=== PATIENT | female | born 1990 | race Two or more races ===

== ENCOUNTER 2019-06-04 17:27 | Emergency (ER) | payer OTHER ==
[~2019-06-04] VITALS: Ht 167.6 cm; Wt 88.5 kg
--- NOTE | 2019-06-04 18:25 | NUR ---
NAUSEA AND VOMITING X 2 DAYS. PATIENT A/OX4, BREATHING EVEN AND UNLABORED, NO SOB NOTED, NEEDS ATTENDED, KEPT COMFORTABLE.
--- NOTE | 2019-06-04 18:31 | NUR ---
URINE SENT TO LAB.
[2019-06-04 18:36] LABS: APPEARANCE,URINE Slightly Cloudy (CLEAR); BILIRUBIN,URINE MODERATE (NEGATIVE); BLOOD, URINE Trace-intact Ery/uL (NEGATIVE); COLOR,URINE Yellow (YELLOW); KETONES,URINE >=160 (NEGATIVE); LEUKOCYTE ESTERASE ,URINE Negative (NEGATIVE); NITRITE, URINE Negative (NEGATIVE); PH,URINE 5.5 (5.0-8.0); PROTEIN,URINE 30 mg/dl (NEGATIVE); UGLUCOSE 500 MG/DL mg/dL (NEGATIVE); UROBILINOGEN,URINE 0.2 EU/dL (0.2)
[2019-06-04 18:53] LABS: BACTERIA,URINE 1+ /HPF (None Seen); RBC,URINE 0-2 /HPF (0-2); SQUAMOUS EPITHELIAL CELL,UR Many /HPF (None Seen); WBC,URINE NONE SEEN /HPF (0-3)
[2019-06-04] MEDS ORDERED: ONDANSETRON HCL/PF 4 MG/2 ML VIAL IVP ONE (19:00)
[2019-06-04] MEDS ORDERED: LORAZEPAM INJ 2 MG/ML VIAL IV ONE (19:00)
[2019-06-04] MEDS ORDERED: IV NS 0.9% 1,000 ML BAG IV ONE ×2 (19:00→20:00)
[2019-06-04] MEDS ORDERED: ONDANSETRON HCL/PF 4 MG/2 ML VIAL ONE (19:08)
[2019-06-04 19:14] LABS: BASOPHILS # (AUTO) 0.1 /CMM (0.0-0.2); BASOPHILS % (AUTO) 0.4 % (0.0-2.0); EOSINOPHILS % (AUTO) 0.1 % (0.0-6.0); HEMATOCRIT 49 % (33-45); HEMOGLOBIN 16.7 g/dL (11.5-14.8); LYMPHOCYTES # (AUTO) 3.4 /CMM (0.8-4.8); LYMPHOCYTES % (AUTO) 19.6 % (20.0-44.0); MEAN CORPUSCULAR HGB CONC 34 g/dl (31.0-36.0); MEAN CORPUSCULAR VOLUME 83 fL (82-100); MONOCYTES # (AUTO) 1.3 /CMM (0.1-1.30); MONOCYTES % (AUTO) 7.6 % (2.0-12.0); NEUTROPHILS # (AUTO) 12.5 /CMM (1.8-8.9); NEUTROPHILS % (AUTO) 72.3 % (43.0-81.0); PLATELET COUNT (AUTO) 231 /CMM (150-450); RED BLOOD CELL COUNT(AUTO) 5.91 MIL/uL (4.0-5.2); WHITE BLOOD COUNT (AUTO) 17.3 K/uL (4.3-11.0)
[2019-06-04] MEDS ORDERED: LORAZEPAM INJ 2 MG/ML VIAL ONE (19:17)
[2019-06-04 19:31] LABS: ALBUMIN 4.2 g/dL (3.4-5.0); BILIRUBIN,DIRECT 0.1 mg/dL (0.0-0.2); BILIRUBIN,TOTAL 0.6 mg/dL (0.2-1.0); CALCIUM, SERUM 9.8 mg/dL (8.5-10.1); CREATININE 0.9 mg/dL (0.6-1.3); POTASSIUM 3.7 mmol/L (3.5-5.1); TOTAL PROTEIN, SERUM 8.7 g/dL (6.4-8.2)
[2019-06-04 22:08] LABS: CALCIUM, SERUM 8.3 mg/dL (8.5-10.1); CREATININE 0.8 mg/dL (0.6-1.3); POTASSIUM 3.7 mmol/L (3.5-5.1)
--- NOTE | 2019-06-04 23:00 | NUR ---
IV removed. Catheter intact and site benign. Pressure and 4x4 applied to site. No bleeding noted.
[2019-06-04 23:01] VITALS: BP 129/87
--- NOTE | 2019-06-04 23:01 | NUR ---
Patient discharged to home in stable condition. Written and verbal after care instructions given. Patient verbalizes understanding of instruction.
== END 2019-06-04 23:11 | disposition home or self-care (01) ==
LOC: ER 17:28
DX: R11.2 Nausea with vomiting, unspecified (principal); E11.65 Type 2 diabetes mellitus with hyperglycemia; E86.0 Dehydration; R82.4 Acetonuria; D72.829 Elevated white blood cell count, unspecified; K04.7 Periapical abscess without sinus; E87.8 Other disorders of electrolyte and fluid balance, not elsewhere classified; E66.9 Obesity, unspecified; Z68.31 Body mass index [BMI] 31.0-31.9, adult
CPT/HCPCS: 36415; 80048 ×2; 80076; 81001; 82010; 82962 ×2; 83690; 84703; 85025; 96361; 96374; 96375; 99284; J2060; J2405; J7030 ×2; 81000-TC

== ENCOUNTER 2020-09-12 18:21 | Inpatient (IN) | payer MEDICAID, OTHER ==
[~2020-09-12] VITALS: Ht 157.5 cm; Wt 93.0 kg
--- NOTE | 2020-09-12 18:35 | NUR ---
THE PATIENT IS ALERT AND ORIENTED X4. C/O NAUSEA AND VOMITING SINCE 0500. DENIES PAIN. RESPIRATION REGULAR AND UNLABORED. ATTACHED TO THE MONITOR.
[2020-09-12 18:52] LABS: BASOPHILS % (AUTO) 0.2 % (0.0-2.0); HEMATOCRIT 48 % (33-45); HEMOGLOBIN 15.9 g/dL (11.5-14.8); LYMPHOCYTES # (AUTO) 1.2 /CMM (0.8-4.8); LYMPHOCYTES % (AUTO) 6.4 % (20.0-44.0); MEAN CORPUSCULAR HGB CONC 33 g/dl (31.0-36.0); MEAN CORPUSCULAR VOLUME 86 fL (82-100); MONOCYTES # (AUTO) 0.6 /CMM (0.1-1.30); NEUTROPHILS # (AUTO) 16.5 /CMM (1.8-8.9); NEUTROPHILS % (AUTO) 90.4 % (43.0-81.0); PLATELET COUNT (AUTO) 235 /CMM (150-450); RED BLOOD CELL COUNT(AUTO) 5.61 MIL/uL (4.0-5.2); WHITE BLOOD COUNT (AUTO) 18.3 K/uL (4.3-11.0)
[2020-09-12] MEDS ORDERED: ONDANSETRON HCL/PF 4 MG/2 ML VIAL ONE (18:53)
[2020-09-12] MEDS ORDERED: IV NS 0.9% 1,000 ML BAG IV ONE ×2 (19:00→20:00)
[2020-09-12] MEDS ORDERED: ONDANSETRON HCL/PF 4 MG/2 ML VIAL IVP ONE (19:00)
[2020-09-12 19:15] LABS: ALANINE AMINOTRANSFERASE 37 U/L (12-78); ALBUMIN 4.1 g/dL (3.4-5.0); ALKALINE PHOSPHATASE 93 U/L (46-116); ASPARTATE AMINOTRANSFERASE 13 U/L (15-37); BILIRUBIN,DIRECT 0.1 mg/dL (0.0-0.2); BILIRUBIN,TOTAL 0.6 mg/dL (0.2-1.0); CARBON DIOXIDE 16 mmol/L (21-32); CHLORIDE 101 mmol/L (98-107); LIPASE 29 U/L (73-393); POTASSIUM 3.6 mmol/L (3.5-5.1); SODIUM SERUM 139 mmol/L (136-145); TOTAL PROTEIN, SERUM 8.5 g/dL (6.4-8.2); UREA NITROGEN, BLOOD 10 mg/dL (7-18)
[2020-09-12 19:16] LABS: GLUCOSE 379 mg/dL (74-106)
--- NOTE | 2020-09-12 19:20 | NUR ---
PATIENT STILL FEELS NAUSEOUS, MD IS NOTIFIED. VERBAL ORDER FOR IV 5MG OF REGLAN. WILL MEDICATE ORDERED.
[2020-09-12] MEDS ORDERED: METOCLOPRAMIDE HCL 10 MG/2 ML VIAL ONE (19:26)
[2020-09-12] MEDS ORDERED: METOCLOPRAMIDE HCL 10 MG/2 ML VIAL IV ONE (19:30)
--- NOTE | 2020-09-12 19:30 | NUR ---
PATIENT MEDICATED ORDERED.
--- NOTE | 2020-09-12 19:31 | NUR ---
PATIENT AMBULATED TO THE RESTROOM WITH A STEADY GAIT.
--- NOTE | 2020-09-12 19:33 | NUR ---
URINE COLLECTED AND SENT TO LAB.
[2020-09-12 19:49] LABS: BILIRUBIN,URINE Negative (NEGATIVE); COLOR,URINE YELLOW (YELLOW); LEUKOCYTE ESTERASE ,URINE Negative (NEGATIVE); NITRITE, URINE Negative (NEGATIVE); PH,URINE 5.5 (5.0-8.0); PROTEIN,URINE Trace mg/dl (NEGATIVE); UGLUCOSE 500 MG/DL mg/dL (NEGATIVE); UROBILINOGEN,URINE 0.2 EU/dL (0.2)
[2020-09-12 19:54] LABS: BACTERIA,URINE Rare /HPF (None Seen); RBC,URINE 0-2 /HPF (0-2); WBC,URINE 0-2 /HPF (0-3)
[2020-09-12] MEDS ORDERED: INSULIN REGULAR, HUMAN 100 UNIT/ML 10 ML VIAL IV ONE (20:00)
[2020-09-12] MEDS ORDERED: INSULIN REGULAR, HUMAN 100 UNIT/ML 10 ML VIAL ONE (20:09)
--- NOTE | 2020-09-12 20:31 | NUR ---
po challenged per md's order. patient failed challenge. md notified.
--- NOTE | 2020-09-12 21:08 | NUR ---
CALLED [facility], PAGED ALEXANDER SORIANO FOR ADMISSION
--- NOTE | 2020-09-12 21:15 | NUR ---
DR VICENTE SPEAKING WITH ALEXANDER SORIANO DNP
[2020-09-12 21:29] LABS: CALCIUM, SERUM 8.9 mg/dL (8.5-10.1); POTASSIUM 3.9 mmol/L (3.5-5.1)
[2020-09-12] MEDS ORDERED: LORAZEPAM INJ 2 MG/ML VIAL ONE (21:38)
[2020-09-12] MEDS ORDERED: LORAZEPAM INJ 2 MG/ML VIAL IV ONE (22:00)
--- NOTE | 2020-09-12 22:27 | NUR ---
BED ASSIGNMENT: 321-1 TELE
[2020-09-12] MEDS: CEFTRIAXONE 2 G in IV D5W 100 ML IV SCH (22:30)
[2020-09-12] MEDS ORDERED: ZOLPIDEM TARTRATE 5 MG TABLET PO PRN (22:30)
[2020-09-12] MEDS ORDERED: IV NS 0.9% 1,000 ML IV ONE (22:30)
[2020-09-12] MEDS ORDERED: MORPHINE SULFATE INJ 2 MG/ML DISP.SYRIN IV PRN (22:30)
[2020-09-12] MEDS ORDERED: METOCLOPRAMIDE HCL 10 MG/2 ML VIAL IV PRN (22:30)
[2020-09-12] MEDS ORDERED: ACETAMINOPHEN 325 MG TABLET PO PRN (22:30)
--- NOTE | 2020-09-12 22:34 | NUR ---
REPORT GIVEN TO JENNIFER HANNON FOR PAM.
[2020-09-12 22:50] VITALS: BP 101/59
[2020-09-12] MEDS: ENOXAPARIN SODIUM 40 MG/0.4 ML DISP.SYRIN SQ SCH (23:15)
--- NOTE | 2020-09-12 23:17 | NUR ---
CLINICAL EDUCATOR: ANTICOAGULANT H/H 15.9 Plt 235 No active bleeding. Lovenox injection given co-signed with Katie/PARVEZ.
[2020-09-12] MEDS ORDERED: CEFTRIAXONE 1 G VIAL ONE ×2 (23:38→23:39)
--- NOTE | 2020-09-12 23:44 | NUR ---
EXPORT FREIGHT CLERK: ANTIBIOTIC Rocephin IV, indication and possible side effect discussed to patient, verbalized understanding.
--- NOTE | 2020-09-13 00:19 | NUR ---
PEDICURIST: ADMISSION (23:15) 30 y/o female A/O x4. Oriented to room, unit, staff. Skin checked done, skin intact, no pressure injury noted. Patient is independent with mobility. No c/o abdominal pain, denies N/V at this time. Place call light within reach. Sinus rhythm in the Tele monitor HR 80, tolerating room air.
[2020-09-13] MEDS: IV NS 0.9% 1,000 ML IV PRN ×3 (02:19→18:48)
[2020-09-13] MEDS ORDERED: DEXTROSE 50%-WATER 50 ML DISP.SYRIN IV PRN (04:00)
--- NOTE | 2020-09-13 06:01 | NUR ---
INSTRUMENT REPAIRER: END OF SHIFT REPORT Sinus rhythm in the Tele monitor HR 74. Ongoing IVF, on Rocephin IV, afebrile. On Full Liquids, patient tolerated ice chips and will try to eat Full liquids diet. Denies N/V, no c/o abdominal pain. Independent with mobility. Will endorse to oncoming RN.
[2020-09-13] MEDS: BLOOD SUGAR DIAGNOSTIC 1 EACH STRIP IN SCH ×4 (06:06→22:10)
[2020-09-13] MEDS: INSULIN REGULAR, HUMAN 100 UNIT/ML 3 ML VIAL SQ PRN ×3 (06:07→17:53)
--- NOTE | 2020-09-13 06:10 | NUR ---
REAL ESTATE APPRAISER SUPERVISOR: ACCUCHECK FSBG 180mg/dl given 4 units insulin regular per ISS, co-signed with Sonali/RN.
[2020-09-13 06:56] LABS: BASOPHILS % (AUTO) 0.1 % (0.0-2.0); HEMATOCRIT 41 % (33-45); HEMOGLOBIN 13.4 g/dL (11.5-14.8); LYMPHOCYTES # (AUTO) 3.4 /CMM (0.8-4.8); LYMPHOCYTES % (AUTO) 22.2 % (20.0-44.0); MEAN CORPUSCULAR HGB CONC 33 g/dl (31.0-36.0); MEAN CORPUSCULAR VOLUME 87 fL (82-100); MONOCYTES # (AUTO) 1.7 /CMM (0.1-1.30); MONOCYTES % (AUTO) 11.1 % (2.0-12.0); NEUTROPHILS # (AUTO) 10.2 /CMM (1.8-8.9); NEUTROPHILS % (AUTO) 66.6 % (43.0-81.0); PLATELET COUNT (AUTO) 191 /CMM (150-450); RED BLOOD CELL COUNT(AUTO) 4.67 MIL/uL (4.0-5.2); WHITE BLOOD COUNT (AUTO) 15.3 K/uL (4.3-11.0)
--- NOTE | 2020-09-13 07:15 | NUR ---
FAMILY PROGRAM SPECIALIST OPENING NOTES RECEIVED PATIENT IN BED, ASLEEP BUT EASILY AROUSABLE. PATIENT ALERT AND ORIENTED X 4. PATIENT IS AMBULATORY. PATIENT WITH EVEN AND UNLABORED BREATHING ON ROOM AIR WITH NO SIGNS OF DISTRESS. NO COMPLAINT OF PAIN OR DISCOMFORT AT THIS TIME. PATIENT WITH IV PERIPHERAL LINE AT RIGHT HAND G22 WITH NS AT 150ML/HR, INFUSING WELL. PATIENT DOES NOT COMPLAIN OF ANY NAUSEA OR VOMITING. SAFETY MEASURES ENSURED AND COMFORT MEASURES PROVIDED. BED AT LOWEST BED POSITION AND LOCKED FOR SAFETY. CALL LIGHT AND TABLE WITHIN REACH AT ALL TIMES. PROVIDED WITH CALM AND QUIET ENVIRONMENT. WILL CONTINUE TO MONITOR PATIENT.
[2020-09-13 07:33] LABS: ALBUMIN 3.1 g/dL (3.4-5.0); BILIRUBIN,TOTAL 0.3 mg/dL (0.2-1.0); CALCIUM, SERUM 7.8 mg/dL (8.5-10.1); CREATININE 0.6 mg/dL (0.6-1.3); MAGNESIUM 1.4 mg/dL (1.8-2.4); PHOSPHORUS 3.2 mg/dL (2.5-4.9); POTASSIUM 3.5 mmol/L (3.5-5.1); TOTAL PROTEIN, SERUM 6.6 g/dL (6.4-8.2)
[2020-09-13 07:44] LABS: THYROID STIMULATING HORMONE 0.609 uIU/mL (0.358-3.74)
[2020-09-13 08:00] VITALS: BP 100/53
[2020-09-13] MEDS: PANTOPRAZOLE 40 MG VIAL IV SCH (08:40)
[2020-09-13] MEDS: Magnesium 1GM/D5W 100ML PREMIX 100 ML IV SCH ×4 (10:32→15:51)
[2020-09-13] MEDS ORDERED: Magnesium 1GM/D5W 100ML PREMIX 100 ML IV ONE (15:45)
--- NOTE | 2020-09-13 15:45 | NUR ---
CLINIC CLERK NOTES LAST BAG OF MAGNESIUM HOOKED AND RUNNING. NO ADVERSE REACTION NOTED AT THIS TIME.
[2020-09-13 16:00] VITALS: BP 120/71
[2020-09-13] MEDS ORDERED: SERT100T PO (16:32)
[2020-09-13] MEDS ORDERED: INSU100I26 SQ (16:32)
--- NOTE | 2020-09-13 19:00 | NUR ---
MS RN CLOSING NOTE PATIENT AWAKE ON BED ALERT AND ORIENTED X 4 . PATIENT DENIES ANY PAIN OR DISCOMFORT AT THIS TIME. PATIENT WITH PERIPHERAL LINE ON RIHGT HAND G22 WITH ONGOING NS AT 150ML/HR, INFUSING WELL. WITH NO SIGNS OF DISTRESS THROUGHOUT THE SHIFT. PATIENT IS AMBULATORY WITH STEADY GAIT. COMFORT MEASURES PROVIDED. PROVIDED WITH CALM AND QUIET ENVIRONMENT. BED MAINTAINED ON LOWEST POSITION AND LOCKED. CALL LIGHT AND BEDSIDE TABLE WITHIN REACH AT ALL TIMES. WILL ENDORSE TO HEALTH ADMINISTRATOR FOR CONTINUITY OF CARE.
[2020-09-13 20:03] VITALS: BP 103/50
--- NOTE | 2020-09-13 21:00 | NUR ---
AIRCRAFT POWERTRAIN REPAIRER: CONTINUITY OF CARE 19:08 Patient in bed, resting. Sinus rhythm in the Tele monitor. Patient reports feeling better today, no c/o abdominal pain, no episode of N/V.
[2020-09-13] MEDS: *INSULIN REGULAR(HUMULIN R)HUM 100 UNIT/ML VIAL SQ PRN (22:14)
--- NOTE | 2020-09-13 22:16 | NUR ---
OPERATIONAL INTELLIGENCE OFFICER: ACCUCHECK FSBG 181mg/dl given 3 units insulin regular per ISS, co-signed by Niki/RN.
[2020-09-13] MEDS: CEFTRIAXONE 2 G in IV D5W 100 ML IV SCH (22:18)
[2020-09-13] MEDS: ENOXAPARIN SODIUM 40 MG/0.4 ML DISP.SYRIN SQ SCH (22:26)
--- NOTE | 2020-09-13 22:27 | NUR ---
FRUIT RANCHER: ANTICOAGULANT H/H 13. Plt 191 No active bleeding. Lovenox injection given co-signed by Shoshana/PARVEZ.
--- NOTE | 2020-09-13 22:39 | NUR ---
IS/IT PROJECT MANAGER: BACK PAIN Patient c/o back pain 11/20 described as aching, patient with facial grimace. PRN Morphine given, will reassess pain level. Fall precaution maintained.
[2020-09-14 00:12] VITALS: BP 118/63
[2020-09-14] MEDS: IV NS 0.9% 1,000 ML IV PRN ×2 (03:38→21:45)
[2020-09-14] MEDS: ONDANSETRON HCL/PF 4 MG/2 ML VIAL IVP PRN ×2 (04:30→20:27)
--- NOTE | 2020-09-14 04:33 | NUR ---
DYEING MACHINE FEEDER: N/V Patient c/o feeling sick, reports vomiting clear fluids and nauseous. Denies chest pain. PRN Zofran given, will reassess.
[2020-09-14 04:38] VITALS: BP 130/81
--- NOTE | 2020-09-14 05:12 | NUR ---
PROSTHETIC TECHNICIAN: N/V Another episode of vomiting clear fluids, per patient nausea is the same. Zofran ineffective, Reglan IV given, will reassess.
[2020-09-14] MEDS: BLOOD SUGAR DIAGNOSTIC 1 EACH STRIP IN SCH ×4 (05:39→21:48)
[2020-09-14] MEDS: INSULIN REGULAR, HUMAN 100 UNIT/ML 3 ML VIAL SQ PRN ×3 (05:41→17:08)
--- NOTE | 2020-09-14 05:43 | NUR ---
LOGISTICS AND PLANNING MANAGER: ACCUCHECK FSBG 219mg/dl given 8units insulin regular per ISS, co-signed by Amarilis/RN.
--- NOTE | 2020-09-14 05:52 | NUR ---
CRYPTOANALYSIS TEACHER: ANXIETY Patient used call light, nurse answered and overheard patient talking over the phone, stated she wants to and someone to shoot her. Immediately went to patient room, patient in the bed holding her cellphone. Asked patient if she is trying to hurt herself. Patient denies Suicidal ideation and no plans of killing herself. Patient stated she's tired of having nausea. Patient appears anxious, reports shortness of breath, Oxygen 97% on room air. Sinus rhythm in the Tele monitor, no c/o chest pain.
[2020-09-14 06:43] LABS: BASOPHILS % (AUTO) 0.4 % (0.0-2.0); EOSINOPHILS % (AUTO) 0.6 % (0.0-6.0); HEMATOCRIT 42 % (33-45); HEMOGLOBIN 13.9 g/dL (11.5-14.8); LYMPHOCYTES # (AUTO) 3.7 /CMM (0.8-4.8); LYMPHOCYTES % (AUTO) 39.5 % (20.0-44.0); MEAN CORPUSCULAR HGB CONC 33 g/dl (31.0-36.0); MEAN CORPUSCULAR VOLUME 87 fL (82-100); MONOCYTES # (AUTO) 0.7 /CMM (0.1-1.30); MONOCYTES % (AUTO) 7.3 % (2.0-12.0); NEUTROPHILS # (AUTO) 4.9 /CMM (1.8-8.9); NEUTROPHILS % (AUTO) 52.2 % (43.0-81.0); PLATELET COUNT (AUTO) 167 /CMM (150-450); RED BLOOD CELL COUNT(AUTO) 4.78 MIL/uL (4.0-5.2); WHITE BLOOD COUNT (AUTO) 9.3 K/uL (4.3-11.0)
[2020-09-14 06:50] LABS: CALCIUM, SERUM 8.1 mg/dL (8.5-10.1); CREATININE 0.7 mg/dL (0.6-1.3); MAGNESIUM 1.7 mg/dL (1.8-2.4); PHOSPHORUS 1.7 mg/dL (2.5-4.9); POTASSIUM 3.2 mmol/L (3.5-5.1)
--- NOTE | 2020-09-14 07:42 | NUR ---
JOURNEYMAN TOOL AND DIE MAKER OPENING NOTES PATIENT RECEIVED ASLEEP IN BED, EASY TO AROUSE.ALERT AND ORIENTED X4. ABLE TO MAKE NEEDS KNOWN. ON ROOM AIR, TOLERATING WELL. NO SOB NOTED. IV ACCESS ON RIGHT HAND, PATENT AND INTACT. SAFETY MEASURES IN PLACE: BED IS LOCKED AND IN THE LOWEST POSITION, SIDE RAILS UP X2 AND CALL LIGHT WITHIN REACH. WILL CONTINUE TO MONITOR THROUGHOUT THE SHIFT.
[2020-09-14 08:00] VITALS: BP 136/76
[2020-09-14] MEDS: SERTRALINE HCL 50 MG TABLET PO SCH (08:45)
[2020-09-14] MEDS: PANTOPRAZOLE 40 MG VIAL IV SCH (08:45)
[2020-09-14] MEDS ORDERED: INSULIN GLARGINE, 100 UNIT/ML CARTRIDGE SQ SCH (09:00)
--- NOTE | 2020-09-14 09:19 | NUR ---
MS RN NOTES PATIENT IS NAUSEATED WITH EMESIS PRESENT. MADE JEAN MARIE MARTINEZ BOTTOM CAGER AWARE WITH ORDERS TO DISCONTINUE LANTUS AND BEGIN STRICT NPO. ORDERS READ AND CARRIED OUT.
[2020-09-14] MEDS ORDERED: Magnesium 1GM/D5W 100ML PREMIX 100 ML IV SCH (10:30)
[2020-09-14] MEDS ORDERED: POTASSIUM PHOSPHATE MM 7.5 MMOL in IV NS 0.9% 100 ML IV SCH (11:30)
[2020-09-14] MEDS ORDERED: PROCHLORPERAZINE EDISYLATE 10 MG/2 ML VIAL IM PRN (14:30)
[2020-09-14 16:15] VITALS: BP 132/74
--- NOTE | 2020-09-14 18:09 | NUR ---
MS RN NOTES EVALUATED PATIENT ON SHIFT REGARDING PATIENTS STATEMENT ON PREVIOUS SHIFT THE DESIRE TO . PATIENT DENIED ANY SUICIDAL THOUGHTS AND STATED SHE DOES NOT WANT TO KILL HERSELF AND DENIES WANTING TO HURT OTHERS. PATIENT STATED SHE "WAS JUST FRUSTRATED WITH THE VOMITING." JEAN MARIE PANDEY MADE AWARE WITH ORDER FOR PSYCH EVALUATION.
--- NOTE | 2020-09-14 18:54 | NUR ---
MS RN CLOSING NOTES PATIENT IS AWAKE IN BED. ALERT AND ORIENTED X4. ABLE TO MAKE NEEDS KNOWN. ON ROOM AIR, TOLERATING WELL. NO SOB NOTED. IV ON R HAND#22 DISCONNECTED WHILE PATIENT REPOSITIONED HERSELF IN BED. NEW IV ACCESS ON RFA#22, PATENT, INTACT AND FLUSHING WELL. SAFETY MEASURES IN PLACE: BED IS LOCKED AND IN THE LOWEST POSITION, SIDE RAILS UP X2 AND CALL LIGHT WITHIN REACH. WILL ENDORSE CONTINUITY OF CARE TO ONCOMING SHIFT.
--- NOTE | 2020-09-14 19:50 | NUR ---
MS RN OPENING NOTES PATIENT A/OX4; ABLE TO MAKE NEEDS KNOWN. TOLERATING ROOM AIR WELL WITH NO SOB. RFA #22G S/L INFUSING NS @ 150ML/HR; PATENT AND INTACT. DENIES PAIN OR DISCOMFORT AT THIS TIME. SAFETY MEASURES IN PLACE: BED IN LOWEST LOCKED POSITION, SIDE RAILS UPX2, CALL LIGHT WITHIN EASY REACH. PATIENT IN STABLE CONDITION, WILL CONTINUE PLAN OF CARE.
--- NOTE | 2020-09-14 20:30 | NUR ---
MS RN NOTE - NAUSEA PT C/O NAUSEA. NO EMESIS NOTED. ADMINISTERED ZOFRAN ORDERED. WILL CONTINUE TO ASSESS FOR N/V WITHIN 1 HOUR.
[2020-09-14 20:38] VITALS: BP 122/72
--- NOTE | 2020-09-14 21:46 | NUR ---
MS RN NOTE - PSYCH CONSULT DR. PEACOCK EVALUATED PATIENT WITH PSYCH CONSULT FOR SI. PATIENT STATED "I DIDN'T MEAN IT WHEN I SAID I WANTED TO . I WAS JUST FRUSTRATED." PATIENT STATES SHE HAS NO PLAN OF SI.
--- NOTE | 2020-09-14 21:46 | NUR ---
MS RN NOTE - NAUSEA PT C/O NAUSEA. NO EMESIS NOTED. ZOFRAN NOT EFFECTIVE. ADMINISTERED COMPAZINE ORDERED. WILL CONTINUE TO ASSESS FOR N/V WITHIN 1 HOUR.
[2020-09-14] MEDS: ENOXAPARIN SODIUM 40 MG/0.4 ML DISP.SYRIN SQ SCH (21:48)
[2020-09-14] MEDS: *INSULIN REGULAR(HUMULIN R)HUM 100 UNIT/ML VIAL SQ PRN (21:49)
[2020-09-15] MEDS: IV NS 0.9% 1,000 ML IV PRN (04:40)
[2020-09-15 06:04] LABS: BASOPHILS % (AUTO) 0.2 % (0.0-2.0); EOSINOPHILS % (AUTO) 0.3 % (0.0-6.0); HEMATOCRIT 39 % (33-45); HEMOGLOBIN 13.3 g/dL (11.5-14.8); LYMPHOCYTES # (AUTO) 3.8 /CMM (0.8-4.8); LYMPHOCYTES % (AUTO) 34.2 % (20.0-44.0); MEAN CORPUSCULAR HGB CONC 34 g/dl (31.0-36.0); MEAN CORPUSCULAR VOLUME 86 fL (82-100); MONOCYTES # (AUTO) 0.8 /CMM (0.1-1.30); MONOCYTES % (AUTO) 7.3 % (2.0-12.0); NEUTROPHILS # (AUTO) 6.4 /CMM (1.8-8.9); PLATELET COUNT (AUTO) 167 /CMM (150-450); RED BLOOD CELL COUNT(AUTO) 4.56 MIL/uL (4.0-5.2)
[2020-09-15 06:08] LABS: CALCIUM, SERUM 8.4 mg/dL (8.5-10.1); CREATININE 0.7 mg/dL (0.6-1.3); MAGNESIUM 1.9 mg/dL (1.8-2.4); PHOSPHORUS 3.1 mg/dL (2.5-4.9); POTASSIUM 3.5 mmol/L (3.5-5.1)
--- NOTE | 2020-09-15 06:20 | NUR ---
MS RN CLOSING NOTE PATIENT A/OX4; ABLE TO MAKE NEEDS KNOWN. TOLERATING ROOM AIR WELL WITH NO SOB. RFA #22G S/L INFUSING NS @ 150ML/HR; PATENT AND INTACT. DENIES PAIN, DISCOMFORT OR N/V/D AT THIS TIME. MAINTAINED NPO DIET. SAFETY MEASURES IN PLACE: BED IN LOWEST LOCKED POSITION, SIDE RAILS UPX2, CALL LIGHT WITHIN EASY REACH. PATIENT IN STABLE CONDITION, WILL ENDORSE PLAN OF CARE TO ONCOMING RN.
[2020-09-15] MEDS: BLOOD SUGAR DIAGNOSTIC 1 EACH STRIP IN SCH ×2 (06:33→11:29)
[2020-09-15] MEDS: INSULIN REGULAR, HUMAN 100 UNIT/ML 3 ML VIAL SQ PRN ×2 (06:33→11:52)
--- NOTE | 2020-09-15 07:25 | NUR ---
MS RN OPENING NOTES RECEIVED PATIENT ASLEEP IN HER BED. PATIENT ON ROOM AIR; BREATHING EVEN AND UNLABORED; NO SOB PRESENT AT THIS TIME. RFA IV ACCESS #22G PRESENT AND INTACT INFUSING NS @ 150ML/HR. NO S/S OF PAIN SUCH FACIAL GRIMACING, MOANING OR GUARDING. NPO DIET. SAFETY MEASURES IN PLACE: BED IN LOW POSITION AND LOCKED, RAILS UPX2, CALL LIGHT WITHIN EASY REACH. WILL CONTINUE TO MONITOR PATIENT.
[2020-09-15 08:00] VITALS: BP 122/66
[2020-09-15] MEDS: PANTOPRAZOLE 40 MG VIAL IV SCH (08:21)
[2020-09-15] MEDS: SERTRALINE HCL 50 MG TABLET PO SCH (08:34)
[2020-09-15] MEDS ORDERED: SERTRALINE HCL 50 MG TABLET PO SCH (11:00)
[2020-09-15] MEDS ORDERED: METO-295 PO (11:52)
--- NOTE | 2020-09-15 12:50 | NUR ---
DISCHARGE NOTES PATIENT DISCHARGED HOME IN MEDICALLY STABLE CONDITION. PATIENT A/O X4, ON ROOM AIR, ABLE TO MAKE NEEDS KNOW. ALL DISCHARGE DOCUMENTATIONS READY; TEACHING PROVIDED TO PATIENT REGARDING DISCHARGE MEDICATIONS, DIET AND PHYSICIAN INSTRUCTIONS. PATIENT VERBALIZED UNDERSTANDING AND SIGNED DISCHARGE PAPERWORK. PERSONAL BELONGINGS ACCOUNTED, PERSONAL MEDICATION PICKED UP FROM THE PHARMACY AND HANDED TO PATIENT. FOR AND FORM SIGNED WELL. SKIN IS INTACT. BEFORE LEAVING THE FLOOR IV ACCESS WAS REMOVED WITH THE WRISTBAND. PATIENT LEFT THE FLOOR VIA WHEELCHAIR ACCOMPANIED BY RN AND BOYFRIEND. PATIENT LEFT THE UNIT AT 1245.
[2020-09-15 12:53] LABS: BILIRUBIN,URINE NEGATIVE (NEGATIVE); COLOR,URINE YELLOW (YELLOW); LEUKOCYTE ESTERASE ,URINE TRACE (NEGATIVE); NITRITE, URINE NEGATIVE (NEGATIVE); PROTEIN,URINE NEGATIVE (NEGATIVE); UGLUCOSE NEGATIVE (NEGATIVE); UROBILINOGEN,URINE 0.2 EU/dL (0.2)
[2020-09-15 13:18] LABS: BACTERIA,URINE Rare /HPF (None Seen); RBC,URINE 0-2 /HPF (0-2); SQUAMOUS EPITHELIAL CELL,UR Moderate /HPF (None Seen); WBC,URINE 0-2 /HPF (0-3)
== END 2020-09-15 12:43 | disposition home or self-care (01) | DRG 48 ==
LOC: ER 18:23 → TELE 22:34 → MED 09-14 08:47
PROVIDERS: ADMIT Nurse Practitioner Acute Care; ATTEND Hospitalist
DX: E10.43 Type 1 diabetes mellitus with diabetic autonomic (poly)neuropathy (principal); E10.65 Type 1 diabetes mellitus with hyperglycemia; E86.1 Hypovolemia; K31.84 Gastroparesis; Z79.4 Long term (current) use of insulin; D72.829 Elevated white blood cell count, unspecified; Z20.822 Contact with and (suspected) exposure to COVID-19; R53.1 Weakness; F32.9 Major depressive disorder, single episode, unspecified; E86.0 Dehydration
CPT/HCPCS: 36415; 71045-TC; 80048-TC; 80053-TC; 80061-TC; 80076-TC; 81001; 82010-TC; 82962-TC; 83690-TC; 83735-TC; 84100-TC; 84443-TC; 84484-TC; 84703-TC; 85025-TC; 87081-TC; 87086-TC; C9113; C9803; G0378; J0696; J0780; J1650; J1815; J2060; J2405; J2765; J3475; J3490; J7030; J7050; J7060

== ENCOUNTER 2021-02-20 06:01 | Inpatient (IN) | payer MEDICAID, OTHER ==
[~2021-02-20] VITALS: Ht 162.6 cm; Wt 93.0 kg
[~2021-02-20 06:01] MED LIST: INSU100I26 SQ; METO-295 PO; SERT100T PO
--- NOTE | 2021-02-20 06:29 | NUR ---
BIB SELF C/O NASUEA AND VOMITTING FOR 2-3 DAYS STATES SHE IS "UNABLE TO KEEP ANYTHING DOWN". SHE ALSO ENDORSES DIARRHEA FOR THE SAME AMOUNT OF TIME BUT DENIES ABD PAIN, FEVER, OR FLU LIKE SYMPTOMS. NO C/P OR SOB. PT CHANGED INTO A GOWN AND PLACED ON THE MONITOR. ALL VITALS STABLE. MD WAS AT THE BEDSIDE FOR EVAL.
[2021-02-20] MEDS ORDERED: ONDANSETRON HCL/PF 4 MG/2 ML VIAL ONE (06:45)
[2021-02-20] MEDS ORDERED: LORAZEPAM INJ 2 MG/ML VIAL ONE (06:46)
[2021-02-20] MEDS ORDERED: IV NS 0.9% 1,000 ML BAG IV ONE ×2 (07:00→08:30)
[2021-02-20] MEDS ORDERED: ONDANSETRON HCL/PF 4 MG/2 ML VIAL IVP ONE (07:00)
[2021-02-20] MEDS ORDERED: LORAZEPAM INJ 2 MG/ML VIAL IV ONE (07:00)
--- NOTE | 2021-02-20 07:00 | NUR ---
URINE SENT TO LAB
[2021-02-20 07:27] LABS: BASOPHILS % (AUTO) 0.3 % (0.0-2.0); EOSINOPHILS % (AUTO) 0.4 % (0.0-6.0); HEMATOCRIT 47 % (33-45); HEMOGLOBIN 16.1 g/dL (11.5-14.8); LYMPHOCYTES # (AUTO) 3.2 K/uL (0.8-4.8); LYMPHOCYTES % (AUTO) 19.6 % (20.0-44.0); MEAN CORPUSCULAR HGB CONC 34 g/dl (31.0-36.0); MEAN CORPUSCULAR VOLUME 85 fL (82-100); MONOCYTES % (AUTO) 5.8 % (2.0-12.0); NEUTROPHILS # (AUTO) 12.3 K/uL (1.8-8.9); NEUTROPHILS % (AUTO) 73.9 % (43.0-81.0); PLATELET COUNT (AUTO) 175 K/uL (150-450); RED BLOOD CELL COUNT(AUTO) 5.59 MIL/uL (4.0-5.2); WHITE BLOOD COUNT (AUTO) 16.6 K/uL (4.3-11.0)
[2021-02-20 07:31] LABS: BILIRUBIN,URINE NEGATIVE (NEGATIVE); LEUKOCYTE ESTERASE ,URINE NEGATIVE (NEGATIVE); NITRITE, URINE NEGATIVE (NEGATIVE); PROTEIN,URINE TRACE mg/dl (NEGATIVE); UGLUCOSE >=1000 mg/dL (NEGATIVE); UROBILINOGEN,URINE 0.2 EU/dL (0.2)
--- NOTE | 2021-02-20 07:31 | NUR ---
ASSESSED PT ON BED AWAKE AND ALERT, NOT IN RESPIRATORY DISTRESS, V/S STABLE, KEPT RESTED AND COMFORTABLE. WILL CONTINUE TO MONITOR.
[2021-02-20 07:33] LABS: COLOR,URINE STRAW (YELLOW)
[2021-02-20 07:40] LABS: ALBUMIN 3.8 g/dL (3.4-5.0); BILIRUBIN,DIRECT 0.2 mg/dL (0.0-0.2); BILIRUBIN,TOTAL 0.6 mg/dL (0.2-1.0); CALCIUM, SERUM 8.7 mg/dL (8.5-10.1); CREATININE 0.7 mg/dL (0.6-1.3); POTASSIUM 3.7 mmol/L (3.5-5.1); TOTAL PROTEIN, SERUM 8.1 g/dL (6.4-8.2)
[2021-02-20] MEDS ORDERED: INSULIN REGULAR, HUMAN 100 UNIT/ML 10 ML VIAL SQ ONE (09:00)
--- NOTE | 2021-02-20 10:10 | NUR ---
REPEAT BMP DRAWN BY ER PHLEB.
[2021-02-20 10:49] LABS: CALCIUM, SERUM 7.7 mg/dL (8.5-10.1); CREATININE 0.7 mg/dL (0.6-1.3); POTASSIUM 4.5 mmol/L (3.5-5.1)
[2021-02-20 11:15] LABS: BACTERIA,URINE None seen /HPF (None Seen); RBC,URINE NONE SEEN /HPF (0-2); SQUAMOUS EPITHELIAL CELL,UR None Seen /HPF (None Seen); WBC,URINE NONE SEEN /HPF (0-3)
--- NOTE | 2021-02-20 11:36 | NUR ---
MOVE SHEET SUBMITTED.
[2021-02-20] MEDS ORDERED: INSU100V3 SQ (11:46)
--- NOTE | 2021-02-20 15:39 | NUR ---
[facility] CALLED CONTRACT ASSISTANT PAGED.
[2021-02-20] MEDS ORDERED: MAGNESIUM HYDROXIDE 30 ML UDC PO PRN (16:00)
[2021-02-20] MEDS ORDERED: IV NS 0.9% 1,000 ML IV PRN (16:00)
[2021-02-20] MEDS ORDERED: DEXTROSE 50%-WATER 50 ML DISP.SYRIN IV PRN (16:00)
[2021-02-20] MEDS ORDERED: ACETAMINOPHEN 325 MG TABLET PO PRN (16:00)
[2021-02-20] MEDS ORDERED: Z GUARD REMEDY 2 OZ OINT TP PRN (16:00)
[2021-02-20] MEDS ORDERED: MAG HYDROX/AL HYDROX/SIMETH 30 ML UDC PO PRN (16:00)
--- NOTE | 2021-02-20 16:13 | NUR ---
ROOM GIVEN 324-2
--- NOTE | 2021-02-20 16:18 | NUR ---
REPORT GIVEN TO PARVEZ BAY FOR PAM.
[2021-02-20 16:50] VITALS: BP 131/96
--- NOTE | 2021-02-20 16:56 | NUR ---
RN NOTE DR. PERALTA ORDERED TO INCREASE THE IV NS 0.9 FROM 75 ML/HR TO 125 ML/HR. RECEIVED ORDER AND CARRIED OUT.
[2021-02-20] MEDS: IV NS 0.9% 1,000 ML IV PRN (17:23)
[2021-02-20] MEDS: INSULIN REGULAR, HUMAN 100 UNIT/ML 3 ML VIAL SQ PRN (17:25)
[2021-02-20] MEDS: ONDANSETRON HCL/PF 4 MG/2 ML VIAL IVP PRN (17:27)
[2021-02-20] MEDS: BLOOD SUGAR DIAGNOSTIC 1 EACH STRIP IN SCH ×2 (17:27→21:53)
--- NOTE | 2021-02-20 17:58 | NUR ---
RN NOTE Received report from PARVEZ Babcock.
--- NOTE | 2021-02-20 17:59 | NUR ---
RN NOTE Received patient via gurney. Patient is A/O x 4, able to make needs known. Stable on room air, no SOB or s/s of respiratory distress noted. Vitals signs taken as follows: BP-131/93; SC-88; RR-20; Temp-98.2; SPO2- 99%. IV access on Left wrist #20G, intact and patent; running on NS at 125 ml/hr. Patient was oriented to the room and how to use the call light. Belongings accounted for. Patient complained of nausea, PRN medication given. Safety measures in place: bed in low, locked position; siderails up; HOB at semi fowlers; call light within reach. Will endorse to overnight stocker nurse for PAM.
--- NOTE | 2021-02-20 19:47 | NUR ---
RN OPENING NOTES Received patient in bed, awake A/O x 4, able to make needs known. Stable on room air, no SOB or s/s of respiratory distress noted. No pain or discomfort at this time. IV access on Left wrist #20G, intact and patent; running on NS at 125 ml/hr.Safety measures in place: bed in low, locked position; siderails up; HOB at semi fowlers; call light within easy reach. Will continue to monitor patient accordingly..
[2021-02-20 20:51] VITALS: BP 132/68
--- NOTE | 2021-02-20 21:00 | NUR ---
RN NOTES Gave report to registry nurse(Sg) for continuity of care , patient denies pain, no SOB
[2021-02-20] MEDS: INSULIN GLARGINE, 100 UNIT/ML CARTRIDGE SQ SCH (21:55)
[2021-02-21 05:54] LABS: BASOPHILS % (AUTO) 0.3 % (0.0-2.0); EOSINOPHILS % (AUTO) 0.5 % (0.0-6.0); HEMATOCRIT 42 % (33-45); HEMOGLOBIN 14.4 g/dL (11.5-14.8); LYMPHOCYTES # (AUTO) 2.6 K/uL (0.8-4.8); LYMPHOCYTES % (AUTO) 24.1 % (20.0-44.0); MEAN CORPUSCULAR HGB CONC 34 g/dl (31.0-36.0); MEAN CORPUSCULAR VOLUME 85 fL (82-100); MONOCYTES # (AUTO) 0.8 K/uL (0.1-1.30); MONOCYTES % (AUTO) 7.6 % (2.0-12.0); NEUTROPHILS # (AUTO) 7.2 K/uL (1.8-8.9); NEUTROPHILS % (AUTO) 67.5 % (43.0-81.0); PLATELET COUNT (AUTO) 142 K/uL (150-450); RED BLOOD CELL COUNT(AUTO) 4.95 MIL/uL (4.0-5.2); WHITE BLOOD COUNT (AUTO) 10.7 K/uL (4.3-11.0)
[2021-02-21] MEDS: INSULIN REGULAR, HUMAN 100 UNIT/ML 3 ML VIAL SQ PRN ×3 (06:45→17:33)
[2021-02-21] MEDS: BLOOD SUGAR DIAGNOSTIC 1 EACH STRIP IN SCH ×3 (06:45→17:32)
[2021-02-21 06:58] LABS: THYROID STIMULATING HORMONE 0.22 uIU/mL (0.358-3.74)
[2021-02-21 07:03] LABS: ALBUMIN 3.1 g/dL (3.4-5.0); BILIRUBIN,TOTAL 0.5 mg/dL (0.2-1.0); CALCIUM, SERUM 7.6 mg/dL (8.5-10.1); CREATININE 0.7 mg/dL (0.6-1.3); PHOSPHORUS 2.2 mg/dL (2.5-4.9); POTASSIUM 3.4 mmol/L (3.5-5.1); TOTAL PROTEIN, SERUM 6.7 g/dL (6.4-8.2)
[2021-02-21 08:00] VITALS: BP 105/59
[2021-02-21] MEDS ORDERED: POTASSIUM CHLORIDE 20 MEQ TAB.PRT.SR PO SCH (10:00)
[2021-02-21] MEDS: CEFTRIAXONE 1 G in IV D5W 50 ML IV SCH (10:18)
[2021-02-21] MEDS: POTASSIUM PHOSPHATE MM 7.5 MMOL in IV NS 0.9% 100 ML IV SCH ×2 (11:27→15:07)
[2021-02-21] MEDS: IV NS 0.9% 1,000 ML IV PRN ×2 (12:26→22:10)
[2021-02-21 16:00] VITALS: BP 103/61
[2021-02-21] MEDS: ONDANSETRON HCL/PF 4 MG/2 ML VIAL IVP PRN (16:14)
--- NOTE | 2021-02-21 19:35 | NUR ---
MS RN OPENING NOTES: RECEIVED PATIENT IN BED, AWAKE. A/O X4. NO S/S OF DISTRESS NOTED. NO COMPLAIN OF PAIN. CALL LIGHT WITHIN REACH. BED IN LOWEST AND LOCKED POSITION.
[2021-02-21 20:00] VITALS: BP 128/78
[2021-02-21] MEDS: INSULIN GLARGINE, 100 UNIT/ML CARTRIDGE SQ SCH (22:09)
--- NOTE | 2021-02-21 22:40 | NUR ---
INFORMED DR GARCIA RE: BLOOD SUGAR OF 193, IF REGULAR INSULIN TO BE GIVEN TONIGHT, NO STANDING ORDER FOR REGULAR INSULIN. AND PATIENT IS TAKING ZOLOFT 100MG DAILY AND PATIENT WANTS TO TAKE A DOSE TONIGHT.
[2021-02-21] MEDS ORDERED: *INSULIN REGULAR(HUMULIN R)HUM 100 UNIT/ML VIAL SQ PRN (23:00)
[2021-02-21] MEDS ORDERED: DEXTROSE 50%-WATER 50 ML DISP.SYRIN IV PRN (23:00)
[2021-02-21] MEDS: BLOOD SUGAR DIAGNOSTIC 1 EACH STRIP VI SCH (23:00)
[2021-02-21] MEDS: SERTRALINE HCL 50 MG TABLET PO SCH (23:10)
[2021-02-22] MEDS: BLOOD SUGAR DIAGNOSTIC 1 EACH STRIP VI SCH ×3 (06:48→17:20)
[2021-02-22] MEDS: INSULIN REGULAR, HUMAN 100 UNIT/ML 3 ML VIAL SQ PRN ×3 (06:52→17:22)
[2021-02-22 07:01] LABS: CALCIUM, SERUM 8.1 mg/dL (8.5-10.1); CREATININE 0.6 mg/dL (0.6-1.3); POTASSIUM 3.6 mmol/L (3.5-5.1)
--- NOTE | 2021-02-22 07:36 | NUR ---
MS RN OPENING NOTES RECEIVED PATIENT IN BED AWAKE, A/O X4, VERBALLY RESPONSIVE. ON ROOM AIR, NO SOB NOTED, BREATHING EVEN AND UNLABORED, NO SIGNS OF ACUTE DISTRESS NOTED. WITH SL ON LEFT WRIST G#20 PATENT AND INTACT WITH NS @125ML/HR. SAFETY MEASURES PROVIDED. BED LOCKED AND IN LOWEST POSITION, SR UP X2, CALL LIGHT PLACED WITHIN EASY REACH. WILL CONTINUE TO MONITOR.
[2021-02-22 08:00] VITALS: BP 159/107
[2021-02-22] MEDS: SERTRALINE HCL 50 MG TABLET PO SCH (08:10)
[2021-02-22] MEDS: ONDANSETRON HCL/PF 4 MG/2 ML VIAL IVP PRN (08:23)
--- NOTE | 2021-02-22 09:12 | NUR ---
RN NOTES PATIENT NOTED WITH RESTLESSNESS, VERY ANXIOUS, REQUESTING FOR ANTI ANXIETY MEDICATION TO CALM HER NERVES. CALLED AND SPOKE WITH DR. ROMERO, PER MD, HE WILL COME AND SEE PATIENT LATER TO CHECK ON HER. PATIENT MADE AWARE.
[2021-02-22] MEDS: CEFTRIAXONE 1 G in IV D5W 50 ML IV SCH (09:17)
[2021-02-22] MEDS ORDERED: LORAZEPAM 1 MG TABLET PO ONE (10:30)
[2021-02-22] MEDS ORDERED: PANTOPRAZOLE 40 MG TABLET.DR PO SCH (10:30)
--- NOTE | 2021-02-22 10:32 | NUR ---
RN NOTES DR ROMERO CAME TO UNIT AND SPOKED TO PT WITH ORDER TO GIVE ATIVAN 1MG PO X1 DOSE AND PROTONIX 4OMG TAB. ORDERED CARRIED OUT.
[2021-02-22 16:00] VITALS: BP 138/83
--- NOTE | 2021-02-22 17:11 | NUR ---
RN NOTES FLU VACCINE [facility] LOT # [id number] AND EXPIRATION 10/10/2021 INJECTED TO LEFT DELTOID.
[2021-02-22] MEDS ORDERED: INFLUENZA VACCINE 2021-22 0.5 ML DISP.SYRIN IM ONE (17:30)
--- NOTE | 2021-02-22 17:44 | NUR ---
RN DISCHARGED NOTES PT DISCHARGED HOME IN STABLE CONDITION. A/O X4, ABLE TO MAKE NEEDS KNOWN. NO FURTHER C/O NAUSEA AND VOMITING SINCE EPISODE EARLY THIS MORNING. PT TOLERATED DIET ORDERED AT LUNCH AND DINNER. V/S TAKEN, STABLE AND RECORDED. NO SKIN ISSUES NOTED. HEALTH TEACHINGS/DISCHARGED INSTRUCTIONS GIVEN AND PT VERBALIZED UNDERSTANDING. EXIT FOLDER HANDED TO PT. PT LEFT UNIT AT 1740 AMBULATORY ACCOMPANIED BY CHARLOTTE KAUR. PT'S BOYFRIEND FELIX ON THE LOBBY TO TAKE PT'S HOME. MD AND CHARGE NURSE AWARE OF DISCHARGE.
== END 2021-02-22 17:35 | disposition home or self-care (01) | DRG 639 ==
LOC: ER 06:04 → TELE 16:31 → MED 16:40
PROVIDERS: ADMIT Internal Medicine; ATTEND Internal Medicine
DX: E10.65 Type 1 diabetes mellitus with hyperglycemia (principal); Z79.4 Long term (current) use of insulin; Z20.822 Contact with and (suspected) exposure to COVID-19; Z91.19 Patient's noncompliance with other medical treatment and regimen; Z79.899 Other long term (current) drug therapy
CPT/HCPCS: 36415; 80048-TC; 80053-TC; 80076-TC; 81001; 82010-TC; 82962-TC; 83690-TC; 83735-TC; 84100-TC; 84443-TC; 84484-TC; 84703-TC; 85025-TC; 87081-TC; 87086-TC; C9803; G0378; J0696; J1815; J2060; J2405; J3490; J7030; J7050; J7060; Q2036

== ENCOUNTER 2022-05-22 08:34 | Emergency (ER) | payer OTHER ==
[~2022-05-22] VITALS: Ht 167.6 cm; Wt 78.5 kg
[~2022-05-22 08:34] MED LIST changes: +INSU100V3 SQ; -METO-295 PO
--- NOTE | 2022-05-22 08:40 | NUR ---
REceived pt 32yrs female c/o nausea and vomiting for 2 days off medition for DM one year awake and alert respiration spont and easy
--- NOTE | 2022-05-22 08:45 | NUR ---
INSERTED ANGO CATHER g [address] on [address] ac blood drow and sent to lab
--- NOTE | 2022-05-22 08:50 | NUR ---
UA SENT TO LAB
[2022-05-22] MEDS ORDERED: IV NS 0.9% 1,000 ML BAG IV ONE ×2 (09:00→10:30)
[2022-05-22] MEDS ORDERED: ONDANSETRON HCL/PF 4 MG/2 ML VIAL IVP ONE (09:00)
[2022-05-22 09:13] LABS: BASOPHILS % (AUTO) 0.3 % (0.0-2.0); EOSINOPHILS % (AUTO) 0.5 % (0.0-6.0); HEMATOCRIT 47 % (33-45); HEMOGLOBIN 15.9 g/dL (11.5-14.8); LYMPHOCYTES # (AUTO) 2.3 K/uL (0.8-4.8); LYMPHOCYTES % (AUTO) 17.5 % (20.0-44.0); MEAN CORPUSCULAR HGB CONC 34 g/dl (31.0-36.0); MEAN CORPUSCULAR VOLUME 84 fL (82-100); MONOCYTES # (AUTO) 0.7 K/uL (0.1-1.30); MONOCYTES % (AUTO) 5.2 % (2.0-12.0); NEUTROPHILS % (AUTO) 76.5 % (43.0-81.0); PLATELET COUNT (AUTO) 177 K/uL (150-450); RED BLOOD CELL COUNT(AUTO) 5.66 MIL/uL (4.0-5.2); WHITE BLOOD COUNT (AUTO) 13.1 K/uL (4.3-11.0)
[2022-05-22] MEDS ORDERED: ONDANSETRON HCL/PF 4 MG/2 ML VIAL ONE (09:24)
[2022-05-22 09:32] LABS: ALBUMIN 3.7 g/dL (3.4-5.0); BILIRUBIN,DIRECT 0.2 mg/dL (0.0-0.2); BILIRUBIN,TOTAL 0.6 mg/dL (0.2-1.0); CALCIUM, SERUM 9.4 mg/dL (8.5-10.1); CREATININE 0.8 mg/dL (0.6-1.3); POTASSIUM 3.9 mmol/L (3.5-5.1); TOTAL PROTEIN, SERUM 7.6 g/dL (6.4-8.2)
--- NOTE | 2022-05-22 09:47 | NUR ---
RESTING AT THIS TIME
[2022-05-22] MEDS ORDERED: INSULIN REGULAR, HUMAN 100 UNIT/ML 10 ML VIAL SQ ONE (10:30)
[2022-05-22] MEDS ORDERED: INSULIN REGULAR, HUMAN 100 UNIT/ML 10 ML VIAL ONE (10:32)
--- NOTE | 2022-05-22 10:36 | NUR ---
ACCU CHECK DONE 314MG/LD AWARE 15 unite regrale insulin given
[2022-05-22 10:59] LABS: BILIRUBIN,URINE NEGATIVE (NEGATIVE); COLOR,URINE YELLOW (YELLOW); LEUKOCYTE ESTERASE ,URINE NEGATIVE (NEGATIVE); NITRITE, URINE NEGATIVE (NEGATIVE); PROTEIN,URINE NEGATIVE (NEGATIVE); UGLUCOSE 3+ mg/dL (NEGATIVE); UROBILINOGEN,URINE 0.2 EU/dL (0.2)
[2022-05-22 11:43] LABS: BACTERIA,URINE Moderate /HPF (None Seen); SQUAMOUS EPITHELIAL CELL,UR Few /HPF (None Seen); WBC,URINE 0-2 /HPF (0-3)
--- NOTE | 2022-05-22 11:44 | NUR ---
ACCUCHECK DONE 253MG/LD AWARE
--- NOTE | 2022-05-22 12:09 | NUR ---
IV removed. Catheter intact and site benign. Pressure and 4x4 applied to site. No bleeding noted.
--- NOTE | 2022-05-22 12:11 | NUR ---
Patient discharged to home in stable condition. Written and verbal after care instructions given. Patient verbalizes understanding of instruction.
[2022-05-22 12:13] VITALS: BP 118/58
== END 2022-05-22 12:45 | disposition home or self-care (01) ==
LOC: ER 08:35
DX: E11.65 Type 2 diabetes mellitus with hyperglycemia (principal); R11.2 Nausea with vomiting, unspecified; Z60.2 Problems related to living alone; Z79.4 Long term (current) use of insulin
CPT/HCPCS: 99284; 96374; 96361; 85025; 80048; 87086; 82010; 83690; 80076; 84703; 81001; 36415; 96372; 82962 ×3; J1815; J2405; J7030 ×2

== ENCOUNTER 2024-06-30 18:21 | Emergency (ER) | payer OTHER ==
[~2024-06-30] VITALS: Ht 167.6 cm; Wt 74.8 kg
[2024-06-30 20:34] VITALS: BP 120/79; TEMP 97.8; O2SAT 97
== END 2024-06-30 20:34 | disposition home or self-care (01) ==
LOC: ER 18:23
DX: M25.552 Pain in left hip (principal); M89.8X8 Other specified disorders of bone, other site; E11.9 Type 2 diabetes mellitus without complications; Z79.4 Long term (current) use of insulin; Z79.899 Other long term (current) drug therapy; V43.62XA Car passenger injured in collision with other type car in traffic accident, initial encounter; Y93.89 Activity, other specified; Y92.488 Other paved roadways as the place of occurrence of the external cause; Y99.8 Other external cause status
CPT/HCPCS: 72170-TC